=== PATIENT | female | born 1995 | race Caucasian/White ===

== ENCOUNTER → 2018-07-01 | Outpatient (CLI) | payer BC, MEDICAID ==
[2018-07-02 11:38] LABS: HEPATITIS C VIRUS AB <0.1 s/co ratio (0.0-0.9)
[2018-07-03 07:18] LABS: HEPATITS B SURFACE ANTIGEN Negative (Negative)
== END ==
LOC: OD 13:37
PROVIDERS: ATTEND Dermatology
DX: L72.3 Sebaceous cyst (principal)
CPT/HCPCS: 36415; 86803; 86804; 87340